=== PATIENT | female | born 1965 | race Two or more races ===

== ENCOUNTER → 2023-01-24 | Emergency (ER) | payer OTHER ==
[~2023-01-24] VITALS: Ht 170.2 cm; Wt 122.5 kg
[~2023-01-24] MED LIST: HYDRODIURIL12.5 MG PO; PEPCID40 MG PO; XARELTO20 MG PO
== END | disposition home or self-care (01) ==
LOC: ER 00:44
DX: T78.40XA Allergy, unspecified, initial encounter (principal); I10 Essential (primary) hypertension